=== PATIENT | male | born 1990 | race Caucasian/White ===

== ENCOUNTER 2018-12-05 17:39 | Emergency (ER) | payer SELFPAY ==
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
[2018-12-05 22:04] VITALS: BP 156/90
== END 2018-12-05 22:03 | disposition home or self-care (01) ==
LOC: ED 17:39
DX: S09.90XA Unspecified injury of head, initial encounter (principal); S00.83XA Contusion of other part of head, initial encounter; R51 Headache; V00.131A Fall from skateboard, initial encounter; Y92.9 Unspecified place or not applicable
CPT/HCPCS: 99282